=== PATIENT | female | born 1995 | race African-American/Black ===

== ENCOUNTER 2019-08-24 15:23 | Outpatient (CLI) | payer MEDICARE, MEDICAID, SELFPAY ==
[2019-08-24 16:22] LABS: Beta HCG Quantitative < 2.39 mIU/ML
== END 2019-08-24 15:24 | disposition home or self-care (01) ==
PROVIDERS: Visit Provider Student in an Organized Health Care Education/Training Program
DX: R89.9 Unspecified abnormal finding in specimens from other organs, systems and tissues (principal)
CPT/HCPCS: 36415; 84702

== ENCOUNTER 2019-10-14 13:09 | Outpatient (CLI) | payer MEDICARE, MEDICAID, SELFPAY ==
[2019-10-14 14:24] LABS: Beta HCG Quantitative < 2.39 mIU/ML
== END 2019-10-14 13:10 | disposition home or self-care (01) ==
PROVIDERS: Visit Provider Student in an Organized Health Care Education/Training Program
DX: Z30.42 Encounter for surveillance of injectable contraceptive (principal)
CPT/HCPCS: 36415; 84702